=== PATIENT | female | born 1975 | race Caucasian/White ===

== ENCOUNTER 2023-11-30 06:06 | Day surgery (SDC) | payer MEDICAID ==
[2023-11-23 13:51] LABS: BASOPHILS # (AUTO) 0.1 X10'3 (0-0.2); BASOPHILS % (AUTO) 0.7 % (0-1); EOSINOPHILS # (AUTO) 0.1 X10'3 (0-0.9); EOSINOPHILS % (AUTO) 1.2 % (0-6); LYMPHOCYTES # (AUTO) 1.9 X10'3 (1.1-4.8); LYMPHOCYTES % (AUTO) 21.5 % (21-51); MEAN CORPUSCULAR HEMOGLOBIN 30.4 PG (27.0-31.0); MEAN CORPUSCULAR HGB CONC 34.1 g/dL (33.0-36.5); MEAN CORPUSCULAR VOLUME 89.2 FL (78-98); MEAN PLATELET VOLUME 7.7 FL (7.4-10.4); MONOCYTES # (AUTO) 0.5 X10'3 (0-0.9); MONOCYTES % (AUTO) 5.5 % (2-12); NEUTROPHILS # (AUTO) 6.4 X10'3 (1.8-7.7); NEUTROPHILS % (AUTO) 71.1 % (42-75); PRE OP HEMATOCRIT 41.2 % (35.0-45.0); PRE OP PLATELET COUNT 233 X10'3 (140-440); RED BLOOD COUNT 4.62 X10'6 (4.20-5.60); RED CELL DISTRIBUTION WIDTH 13.5 % (11.5-14.5)
[2023-11-23 14:02] LABS: PRE OP INR 0.9 INR; PRE OP PROTIME 10.2 SECONDS (9.0-12.0)
[2023-11-23 14:03] LABS: ALBUMIN 4.2 G/DL (3.4-5.0); ALBUMIN/GLOBULIN RATIO 1.4 (1.1-1.5); ALKALINE PHOSPHATASE 49 IU/L (46-116); BLOOD UREA NITROGEN 5 MG/DL (7-18); BUN/CREATININE RATIO 8.3 (10.0-20.0); CALCIUM 9.4 MG/DL (8.5-10.1); CHLORIDE 101 MMOL/L (99-107); PRE OP ALT 18 U/L (30-65); PRE OP ANION GAP 7 (8-16); PRE OP AST 11 U/L (10-37); PRE OP BILIRUB, TOTAL 0.7 MG/DL (0.0-1.0); PRE OP GLUCOSE 94 MG/DL (70-104); PRE OP POTASSIUM 3.9 MMOL/L (3.4-5.1); PRE OP SODIUM 137 MMOL/L (135-145); TOTAL PROTEIN 7.3 G/DL (6.4-8.2); eGFR > 90 ML/MIN
[~2023-11-30] VITALS: Ht 160 cm; Wt 87.1 kg
[2023-11-30] VITALS (10 sets, daily range): BP systolic 119–156; BP diastolic 65–90; PULSE 70–81; RESP 11–19; TEMP 97.4; O2SAT 94–100
[~2023-11-30 06:06] MED LIST: ACYC-128 PO; ALBU8HFA INH; IBUPROFEN; LISI10TA27 PO; albuterol 2.5 MG/3 ML nebule NEB ONE
[2023-11-30] MEDS ORDERED: BUPIVAcaine 2.5mg/ml inj 50ml vial (contains preservative) ONE (06:59)
[2023-11-30] MEDS: ceFOXitin 2GM-NS 100mL ADDvant 100 ML IV ONE (06:59)
[2023-11-30] MEDS: INDOCYANINE GREEN 25 MG/10 ML VIAL IV ONE (06:59)
[2023-11-30] MEDS: ringers solution, lacted 1,000 ML IV SCH (07:00)
[2023-11-30] MEDS: famotidine 20mg tablet PO ONE (07:00)
[2023-11-30] MEDS ORDERED: midazolam 1 mg/ML 2ml injection ONE ×2 (07:49→07:50)
[2023-11-30] MEDS ORDERED: fentaNYL/PF 50MCG/1 ML 2ML syringe ONE (07:49)
[2023-11-30] MEDS ORDERED: dexamethasone sod phosphate 4mg/ml inj. ONE (07:51)
[2023-11-30] MEDS ORDERED: propofol inj 20 ML IV ONE (07:51)
[2023-11-30] MEDS ORDERED: LIDOcaine 2% (20mg/ml) 5ml vial ONE (07:51)
[2023-11-30] MEDS ORDERED: rocuronium 10mg/ml inj IV ONE (07:51)
[2023-11-30] MEDS ORDERED: ondansetron/PF 4mg/2ml inj ONE (07:51)
[2023-11-30] MEDS ORDERED: ondansetron/PF 4mg/2ml inj IV PRN (07:55)
[2023-11-30] MEDS ORDERED: ringers solution, lacted 1,000 ML IV SCH (07:55)
[2023-11-30] MEDS ORDERED: hydrALAZINE 20mg/ml inj. IV PRN (07:55)
[2023-11-30] MEDS ORDERED: labetalol 20mg/4ml (5mg/ml) syringe IV PRN (07:55)
[2023-11-30] MEDS ORDERED: morphine 2 MG/ML inj. syringe IV PRN (07:55)
[2023-11-30] MEDS ORDERED: fentaNYL/PF 50MCG/1 ML 2ML syringe IV PRN ×2 (07:55)
[2023-11-30] MEDS ORDERED: sevoflurane 250ml liquid IH ONE (10:21)
[2023-11-30] MEDS ORDERED: acetaminophen 1,000mg/100ml IV 100 ML IV ONE (10:42)
[2023-11-30] MEDS ORDERED: labetalol 20mg/4ml (5mg/ml) syringe IV ONE (10:57)
[2023-11-30] MEDS: BUPIVAcaine 2.5mg/ml inj 50ml vial (contains preservative) ONE (11:08)
[2023-11-30] MEDS ORDERED: sugammadex 200mg/2ml injection IV ONE (11:29)
[2023-11-30] MEDS: morphine 4 MG/ML inj SYRINge IV PRN (11:54)
[2023-11-30] MEDS: HYDROcodone/acetaminophen 5mg/325mg tablet PO ONE (12:22)
== END 2023-11-30 13:28 | disposition home or self-care (01) ==
LOC: PAS 06:06
PROVIDERS: ATTEND Surgery
DX: K80.10 Calculus of gallbladder with chronic cholecystitis without obstruction (principal); I10 Essential (primary) hypertension; J44.9 Chronic obstructive pulmonary disease, unspecified; F32.A Depression, unspecified; I20.9 Angina pectoris, unspecified; I25.2 Old myocardial infarction; Z79.1 Long term (current) use of non-steroidal anti-inflammatories (NSAID); Z79.2 Long term (current) use of antibiotics; Z79.899 Other long term (current) drug therapy; Z98.51 Tubal ligation status; Z91.040 Latex allergy status; Z88.8 Allergy status to other drugs, medicaments and biological substances
CPT/HCPCS: 36415; 47562; 71046; 80053; 82948; 85025; 85610; 85730; 93005; J0131; J0694; J1100; J2250; J2270; J2405; J2704; J3010; J3490; J7030; J7120; S2900; Z7506; Z7508; Z7512; A4215; A4618; A7000